=== PATIENT | male | born 1960 | race Hispanic/Latino ===

== ENCOUNTER 2021-01-25 17:47 | Inpatient (IN) | payer MEDICARE ==
[~2021-01-25] VITALS: Ht 167.6 cm; Wt 54.6 kg
[2021-01-25] MEDS ORDERED: ZOSYN 3.375GM+NS 50ML 3.38 GM in 0.9%NACL 50ML 50 ML IV SCH (18:00)
[2021-01-25] MEDS ORDERED: MORPHINE 2 MG SYG IVP ONE (18:00)
[2021-01-25] MEDS ORDERED: ONDANSETRON 4MG INJ IVP ONE (18:00)
[2021-01-25] MEDS ORDERED: TIMO1DRO5 OP (18:09)
[2021-01-25] MEDS ORDERED: FAMO-136 PO (18:09)
[2021-01-25] MEDS ORDERED: DOCU100T PO (18:09)
[2021-01-25] MEDS ORDERED: LEVO150C4 PO (18:09)
[2021-01-25] MEDS ORDERED: ALPR0.5T8 PO (18:09)
[2021-01-25] MEDS ORDERED: GABA-529 PO (18:09)
[2021-01-25] MEDS ORDERED: BRIM5DRO4 OP (18:09)
[2021-01-25] MEDS ORDERED: AMLO-257 PO (18:09)
[2021-01-25] MEDS ORDERED: LATA7.5D OP (18:09)
[2021-01-25] MEDS ORDERED: LIDO1ADH71 TP (18:09)
[2021-01-25] MEDS ORDERED: CARV3.12 PO (18:09)
[2021-01-25] MEDS ORDERED: SENN-183 PO (18:09)
[2021-01-25] MEDS ORDERED: ASPI-1197 PO (18:09)
[2021-01-25] MEDS ORDERED: FOLI1TAB85 PO (18:09)
[2021-01-25] MEDS ORDERED: ATOR20TA65 PO (18:09)
[2021-01-25] MEDS ORDERED: ONDANSETRON 4MG INJ ONE (18:13)
[2021-01-25] MEDS ORDERED: ZOSYN 3.375GM+NS 50ML 50 ML ONE (18:14)
[2021-01-25] MEDS ORDERED: MORPHINE 2 MG SYG ONE (18:14)
[2021-01-25] MEDS ORDERED: 0.9%NACL 50ML 50 ML IV ONE (18:14)
[2021-01-25 18:41] LABS: BASOPHILS % (AUTO) 0.4 % (0.0-5.0); EOSINOPHILS % (AUTO) 1.7 % (0.0-8.0); HEMATOCRIT 38.5 % (42-54); LYMPHOCYTES % (AUTO) 5.1 % (21.0-51.0); MEAN CORPUSCULAR HEMOGLOBIN 28.7 pg (27.0-33.0); MEAN CORPUSCULAR HGB CONC 30.9 g/dL (32.0-36.0); MONOCYTES % (AUTO) 5.6 % (3.0-13.0); NEUTROPHILS % (AUTO) 86.8 % (40.0-77.0); PLATELET COUNT (AUTO) 310 K/uL (130-400); RED BLOOD CELL COUNT(AUTO) 4.14 MIL/uL (4.50-6.20); RED CELL DISTRIBUTION WIDTH 17.2 % (11.0-15.5); WHITE BLOOD COUNT (AUTO) 14.2 K/uL (4.8-10.8)
[2021-01-25 18:51] LABS: CREATININE 5.4 mg/dL (0.5-1.5); POTASSIUM 3.5 mmol/L (3.5-5.1)
[2021-01-25 18:56] LABS: ALBUMIN 2.4 g/dL (3.5-5.0); TOTAL PROTEIN, SERUM 7.5 g/dL (6.0-8.3)
[2021-01-25 19:12] LABS: CRP QUANTITATIVE 193.7 mg/L (0.00-9.0)
[2021-01-25] MEDS ORDERED: GLUCAGON 1MG KIT 1 MG ML IM PRN (20:30)
[2021-01-25] MEDS ORDERED: ACETAMINOPHEN 325 MG TAB PO PRN (20:30)
[2021-01-25] MEDS ORDERED: DEXTROSE 50%-WATER 50 ML DISP.SYRIN IV PRN (20:30)
[2021-01-25] MEDS: INSULIN R PO SS1 SQ SCH (21:00)
[2021-01-25] MEDS ORDERED: VANCOMYCIN PROTOCOL PER PHARMACY IV SCH (21:00)
[2021-01-25] MEDS ORDERED: VANCOMYCIN 1.25GM/NS 250ML IVPB ONE ×2 (21:00)
[2021-01-25] MEDS: ONDANSETRON 4MG INJ IVP PRN (21:10)
[2021-01-25] MEDS: MORPHINE 2 MG SYG IVP PRN (21:10)
[2021-01-25] MEDS: HEPARIN 5,000 UNIT VIAL SQ SCH (21:10)
[2021-01-26] VITALS (17 sets, daily range): BP systolic 114–169; BP diastolic 59–97
[2021-01-26] MEDS: ONDANSETRON 4MG INJ IVP PRN (03:40)
[2021-01-26] MEDS: MORPHINE 2 MG SYG IVP PRN ×3 (03:40→21:35)
[2021-01-26 06:05] LABS: HEMATOCRIT 35.4 % (42-54); MEAN CORPUSCULAR HEMOGLOBIN 29.1 pg (27.0-33.0); MEAN CORPUSCULAR HGB CONC 31.1 g/dL (32.0-36.0); MEAN CORPUSCULAR VOLUME 93.7 fL (79-99); RED BLOOD CELL COUNT(AUTO) 3.78 MIL/uL (4.50-6.20); RED CELL DISTRIBUTION WIDTH 17.2 % (11.0-15.5); WHITE BLOOD COUNT (AUTO) 15.2 K/uL (4.8-10.8)
[2021-01-26] MEDS ORDERED: 0.9%NACL 50ML 50 ML IV ONE (06:17)
[2021-01-26] MEDS: ZOSYN 3.375GM +NS 50ML IV SCH ×2 (06:19→18:00)
[2021-01-26 06:26] LABS: CREATININE 5.9 mg/dL (0.5-1.5); PHOSPHORUS 5.1 mg/dL (2.5-4.9); POTASSIUM 4.1 mmol/L (3.5-5.1)
[2021-01-26] MEDS: INSULIN R PO SS1 SQ SCH ×4 (07:30→21:00)
[2021-01-26] MEDS: HEPARIN 5,000 UNIT VIAL SQ SCH ×2 (08:15→21:34)
[2021-01-26 08:57] LABS: HEMOGLOBIN A1C 7.5 % (4.0-6.0)
[2021-01-26] MEDS ORDERED: 0.9%NACL 1000ML 1,000 ML IV PRN (11:30)
[2021-01-27] VITALS (24 sets, daily range): BP systolic 91–144; BP diastolic 47–95
[2021-01-27] MEDS: MORPHINE 2 MG SYG IVP PRN (05:10)
[2021-01-27] MEDS: ZOSYN 3.375GM +NS 50ML IV SCH ×2 (05:10→18:35)
[2021-01-27] MEDS: INSULIN R PO SS1 SQ SCH ×4 (06:21→21:00)
[2021-01-27] MEDS: HEPARIN 5,000 UNIT VIAL SQ SCH ×2 (09:00→21:10)
[2021-01-27] MEDS ORDERED: VANCOMYCIN 750MG VIAL IVPB SCH (12:00)
[2021-01-27] MEDS ORDERED: ROPIVACAINE 0.5% 5MG/ML 30ML IJ ONE (12:23)
[2021-01-27] MEDS ORDERED: DEXAMETHASONE SOD PHOSPHATE 4 MG/ML 1ML VIAL ONE (12:23)
[2021-01-27 12:33] LABS: HEMATOCRIT 34.2 % (42-54); MEAN CORPUSCULAR HEMOGLOBIN 29.1 pg (27.0-33.0); MEAN CORPUSCULAR HGB CONC 31.3 g/dL (32.0-36.0); MEAN CORPUSCULAR VOLUME 92.9 fL (79-99); RED BLOOD CELL COUNT(AUTO) 3.68 MIL/uL (4.50-6.20); RED CELL DISTRIBUTION WIDTH 17.2 % (11.0-15.5); WHITE BLOOD COUNT (AUTO) 13.7 K/uL (4.8-10.8)
[2021-01-27] MEDS ORDERED: MIDAZOLAM HCL 1 MG/ML 2ML VIAL ONE (12:39)
[2021-01-27] MEDS ORDERED: PROPOFOL 10 MG/ML 20ML VIAL IV ONE ×2 (12:46→13:18)
[2021-01-27 12:56] LABS: CREATININE 5.8 mg/dL (0.5-1.5); POTASSIUM 4.4 mmol/L (3.5-5.1)
[2021-01-27 19:09] LABS: HEPATITIS Bs ANTIGEN SCREEN P Negative (Negative)
[2021-01-28] VITALS (7 sets, daily range): BP systolic 97–130; BP diastolic 55–73
[2021-01-28] MEDS: ZOSYN 3.375GM +NS 50ML IV SCH ×2 (05:57→18:07)
[2021-01-28] MEDS: INSULIN R PO SS1 SQ SCH ×4 (06:11→22:25)
[2021-01-28] MEDS: HEPARIN 5,000 UNIT VIAL SQ SCH ×2 (09:38→20:30)
[2021-01-28] MEDS: HYDROCODONE/ACETAMINOPHEN 5/325 MG TAB PO PRN ×2 (12:51→20:31)
[2021-01-28] MEDS ORDERED: 0.9% NACL 250ML 250 ML IV SCH (16:00)
[2021-01-28] MEDS: MORPHINE 2 MG SYG IVP PRN ×2 (16:00→22:26)
[2021-01-29] VITALS (22 sets, daily range): BP systolic 101–144; BP diastolic 44–78
[2021-01-29] MEDS: INSULIN R PO SS1 SQ SCH ×4 (06:25→20:34)
[2021-01-29] MEDS: ZOSYN 3.375GM +NS 50ML IV SCH ×2 (06:28→18:00)
[2021-01-29] MEDS: HYDROCODONE/ACETAMINOPHEN 5/325 MG TAB PO PRN ×2 (06:41→11:19)
[2021-01-29 08:47] LABS: HEMATOCRIT 30.7 % (42-54); MEAN CORPUSCULAR HEMOGLOBIN 29.3 pg (27.0-33.0); MEAN CORPUSCULAR HGB CONC 31.6 g/dL (32.0-36.0); MEAN CORPUSCULAR VOLUME 92.7 fL (79-99); PLATELET COUNT (AUTO) 337 K/uL (130-400); RED BLOOD CELL COUNT(AUTO) 3.31 MIL/uL (4.50-6.20); RED CELL DISTRIBUTION WIDTH 17.3 % (11.0-15.5); WHITE BLOOD COUNT (AUTO) 9.5 K/uL (4.8-10.8)
[2021-01-29] MEDS: HEPARIN 5,000 UNIT VIAL SQ SCH ×2 (09:00→20:28)
[2021-01-29 10:00] LABS: EOSINOPHILS % (MANUAL) 4 % (1-6); LYMPHOCYTES % (MANUAL) 11 % (22-44); MAN.DIFF COMMENT-IMPRESSION MANUAL DIFFERENTIAL; MONOCYTES % (MANUAL) 2 % (2-9); PLATELET MORPHOLOGY COMMENT ADEQUATE; SEGMENTED NEUTROPHILS % 83 % (40-70)
[2021-01-29] MEDS ORDERED: VANCOMYCIN 750MG VIAL IVPB SCH (16:00)
[2021-01-29] MEDS: MORPHINE 2 MG SYG IVP PRN (17:17)
[2021-01-30 04:15] VITALS: BP 141/74
[2021-01-30 04:16] VITALS: BP 120/72
[2021-01-30] MEDS: ZOSYN 3.375GM +NS 50ML IV SCH (06:02)
[2021-01-30] MEDS: INSULIN R PO SS1 SQ SCH ×3 (07:30→16:30)
[2021-01-30 08:00] VITALS: BP 126/77
[2021-01-30] MEDS: HEPARIN 5,000 UNIT VIAL SQ SCH (09:37)
[2021-01-30 11:42] VITALS: BP 153/85
[2021-01-30 16:00] VITALS: BP 140/80
== END 2021-01-30 18:00 | DRG 474 ==
LOC: EDH 17:47 → EDHIP 19:30 → UNDOADMIN 22:26 → EDHIP 22:26 → 3AH 01-26 14:09 → EDHIP 01-26 14:09
PROVIDERS: ADMIT Internal Medicine Infectious Disease; ATTEND Internal Medicine Infectious Disease
PROC: 5A1D70Z Performance of Urinary Filtration, Intermittent, Less than 6 Hours Per Day (ICD-10-PCS; 2021-01-26)
PROC: 0Y6C0Z3 Detachment at Right Upper Leg, Low, Open Approach (ICD-10-PCS; principal; 2021-01-29)
PROC: 3E0T3BZ Introduction of Anesthetic Agent into Peripheral Nerves and Plexi, Percutaneous Approach (ICD-10-PCS; 2021-01-29)
PROC: 3E0T33Z Introduction of Anti-inflammatory into Peripheral Nerves and Plexi, Percutaneous Approach (ICD-10-PCS; 2021-01-29)
PROC: 5A1D70Z Performance of Urinary Filtration, Intermittent, Less than 6 Hours Per Day (ICD-10-PCS; 2021-01-29)
DX: T87.81 Dehiscence of amputation stump (principal); N18.6 End stage renal disease; E11.52 Type 2 diabetes mellitus with diabetic peripheral angiopathy with gangrene; I12.0 Hypertensive chronic kidney disease with stage 5 chronic kidney disease or end stage renal disease; M86.8X6 Other osteomyelitis, lower leg; T87.43 Infection of amputation stump, right lower extremity; D64.9 Anemia, unspecified; E11.22 Type 2 diabetes mellitus with diabetic chronic kidney disease; B96.1 Klebsiella pneumoniae [K. pneumoniae] as the cause of diseases classified elsewhere; G89.29 Other chronic pain; Z20.822 Contact with and (suspected) exposure to COVID-19; R53.81 Other malaise; E11.69 Type 2 diabetes mellitus with other specified complication; B95.2 Enterococcus as the cause of diseases classified elsewhere; I25.10 Atherosclerotic heart disease of native coronary artery without angina pectoris; Y83.5 Amputation of limb(s) as the cause of abnormal reaction of the patient, or of later complication, without mention of misadventure at the time of the procedure; Y92.89 Other specified places as the place of occurrence of the external cause; Z89.512 Acquired absence of left leg below knee; Z99.2 Dependence on renal dialysis; Z79.4 Long term (current) use of insulin; Z83.3 Family history of diabetes mellitus
CPT/HCPCS: 36415; 71045; 73560; 73562; 80048; 80053; 80202; 82948; 83036; 83605; 83735; 84100; 84484; 85025; 85027; 86140; 86704; 86706; 87040; 87070; 87076; 87077; 87186; 87340; 87635; 88307; 88311; 90935; 93005; G0378; J1100; J1644; J1815; J2250; J2405; J2543; J2704; J2795; J3370; J7050; J7070

== ENCOUNTER 2021-02-18 09:29 | Emergency (ER) | payer MEDICARE ==
[~2021-02-18 09:29] MED LIST: ALPR0.5T8 PO; AMLO-257 PO; ASPI-1197 PO; ATOR20TA65 PO; BRIM5DRO4 OP; CARV3.12 PO; DOCU100T PO; FAMO-136 PO; FOLI1TAB85 PO; GABA-529 PO; LATA7.5D OP; LEVO150C4 PO; LIDO1ADH71 TP; SENN-183 PO; TIMO1DRO5 OP
[2021-02-18] MEDS ORDERED: ACETAMINOPHEN 325 MG TAB PO SCH (10:00)
[2021-02-18 10:14] LABS: EOSINOPHILS % (AUTO) 5.4 % (0.0-8.0); HEMATOCRIT 35.8 % (42-54); LYMPHOCYTES % (AUTO) 17.9 % (21.0-51.0); MEAN CORPUSCULAR HEMOGLOBIN 29.8 pg (27.0-33.0); MEAN CORPUSCULAR HGB CONC 30.4 g/dL (32.0-36.0); MEAN CORPUSCULAR VOLUME 97.8 fL (79-99); MONOCYTES % (AUTO) 11.5 % (3.0-13.0); PLATELET COUNT (AUTO) 157 K/uL (130-400); RED BLOOD CELL COUNT(AUTO) 3.66 MIL/uL (4.50-6.20); RED CELL DISTRIBUTION WIDTH 20.9 % (11.0-15.5); WHITE BLOOD COUNT (AUTO) 4.8 K/uL (4.8-10.8)
[2021-02-18 10:23] LABS: INR 1.27 (0.85-1.15); PROTHROMBIN TIME 13.5 SEC (9.6-11.6)
[2021-02-18 10:24] LABS: PARTIAL THROMBOPLASTIN TIME 32.2 SEC (26.3-35.5)
[2021-02-18 10:25] LABS: CREATININE 5.7 mg/dL (0.5-1.5)
[2021-02-18 10:29] LABS: ALBUMIN 2.7 g/dL (3.5-5.0); BILIRUBIN,TOTAL 0.7 mg/dL (0.2-1.0); TOTAL PROTEIN, SERUM 7.5 g/dL (6.0-8.3)
[2021-02-18] MEDS ORDERED: ALBUMIN (HUMAN) 25% 200 ML IV ONE (12:22)
[2021-02-18 16:18] VITALS: BP 122/62
[2021-02-18 17:24] LABS: APPEARANCE BODY FLUID CLEAR (CLEAR); COLOR,BODY FLUID YELLOW (LT YELLOW); SPECIMENTYPE,BODY FLUID ASCITES; TOTAL VOLUME,BODY FLUID 7500 mL
[2021-02-18 17:25] LABS: BODY FLUID RBC 110 /cu. mm.; BODY FLUID WBC 118 /cu. mm.
[2021-02-18 18:03] LABS: BF LYMPHOCYTE 51 %; BF MONOCYTE 1 %
== END 2021-02-18 16:39 | disposition home or self-care (01) ==
LOC: EDH 09:29
DX: R18.8 Other ascites (principal); E11.9 Type 2 diabetes mellitus without complications; I10 Essential (primary) hypertension; Z89.511 Acquired absence of right leg below knee; Z89.512 Acquired absence of left leg below knee; Z79.82 Long term (current) use of aspirin; Z79.899 Other long term (current) drug therapy
CPT/HCPCS: 36415; 49083; 80053; 84484 ×2; 85025; 85610; 85730; 87071; 87205; 89051; 96365; 99285; C1729; P9046

== ENCOUNTER 2021-07-29 10:16 | Observation (INO) | payer MEDICARE, OTHER ==
[~2021-07-29] VITALS: Ht 162.6 cm; Wt 62.2 kg
[2021-07-29] MEDS ORDERED: LACTULOSE 20 GM/30 ML UDCUP PR SCH (11:00)
[2021-07-29] MEDS ORDERED: PEG 3350/NA SULF,BICARB,CL/KCL 4000 ML SOLN PO SCH (11:00)
[2021-07-29] MEDS ORDERED: 0.9%NACL 1000ML 1,000 ML IV SCH (11:00)
[2021-07-29 11:16] LABS: BASOPHILS % (AUTO) 0.3 % (0.0-5.0); EOSINOPHILS % (AUTO) 2.5 % (0.0-8.0); HEMATOCRIT 39.5 % (42-54); LYMPHOCYTES % (AUTO) 13.4 % (21.0-51.0); MEAN CORPUSCULAR HEMOGLOBIN 32.5 pg (27.0-33.0); MEAN CORPUSCULAR HGB CONC 32.9 g/dL (32.0-36.0); MEAN CORPUSCULAR VOLUME 98.8 fL (79-99); NEUTROPHILS % (AUTO) 73.5 % (40.0-77.0); PLATELET COUNT (AUTO) 136 K/uL (130-400); RED CELL DISTRIBUTION WIDTH 15.9 % (11.0-15.5); WHITE BLOOD COUNT (AUTO) 6.1 K/uL (4.8-10.8)
[2021-07-29 11:23] LABS: CREATININE 6.8 mg/dL (0.5-1.5); POTASSIUM 5.5 mmol/L (3.5-5.1)
[2021-07-29 11:27] LABS: ALBUMIN 3.5 g/dL (3.5-5.0); BILIRUBIN,TOTAL 0.7 mg/dL (0.2-1.0); TOTAL PROTEIN, SERUM 7.7 g/dL (6.0-8.3)
[2021-07-29] MEDS ORDERED: CARV3.12 PO (11:34)
[2021-07-29] MEDS ORDERED: AMLO-258 PO (11:34)
[2021-07-29] MEDS ORDERED: CALC667C10 PO (11:34)
[2021-07-29] MEDS ORDERED: LEVO50TA11 PO (11:34)
[2021-07-29] MEDS ORDERED: FLUO20CA30 PO (11:34)
[2021-07-29 11:41] LABS: INR 1.15 (0.85-1.15); PROTHROMBIN TIME 12.4 SEC (9.6-11.6)
[2021-07-29] MEDS ORDERED: LACTULOSE 20 GM/30 ML UDCUP PO SCH ×2 (14:00→17:00)
[2021-07-29] MEDS ORDERED: ONDANSETRON 4MG INJ ONE (18:10)
[2021-07-29 18:30] VITALS: BP 123/73
[2021-07-29] MEDS ORDERED: ONDANSETRON 4MG INJ IVP PRN (18:30)
[2021-07-29 19:43] VITALS: BP 114/72
[2021-07-29 23:17] VITALS: BP 117/70
[2021-07-30] VITALS (34 sets, daily range): BP systolic 108–144; BP diastolic 47–80
[2021-07-30 04:46] LABS: BASOPHILS % (AUTO) 0.5 % (0.0-5.0); EOSINOPHILS % (AUTO) 2.8 % (0.0-8.0); HEMATOCRIT 36.4 % (42-54); LYMPHOCYTES % (AUTO) 16.7 % (21.0-51.0); MEAN CORPUSCULAR HEMOGLOBIN 31.8 pg (27.0-33.0); MEAN CORPUSCULAR HGB CONC 32.4 g/dL (32.0-36.0); MEAN CORPUSCULAR VOLUME 98.1 fL (79-99); MONOCYTES % (AUTO) 10.3 % (3.0-13.0); NEUTROPHILS % (AUTO) 69.2 % (40.0-77.0); PLATELET COUNT (AUTO) 136 K/uL (130-400); RED BLOOD CELL COUNT(AUTO) 3.71 MIL/uL (4.50-6.20); RED CELL DISTRIBUTION WIDTH 15.8 % (11.0-15.5); WHITE BLOOD COUNT (AUTO) 5.7 K/uL (4.8-10.8)
[2021-07-30 05:02] LABS: ALBUMIN 3.4 g/dL (3.5-5.0); BILIRUBIN,TOTAL 0.8 mg/dL (0.2-1.0); CREATININE 7.4 mg/dL (0.5-1.5); MAGNESIUM 2.7 mg/dL (1.80-2.40); POTASSIUM 4.6 mmol/L (3.5-5.1); TOTAL PROTEIN, SERUM 7.6 g/dL (6.0-8.3)
[2021-07-30 05:07] LABS: INR 1.18 (0.85-1.15); PROTHROMBIN TIME 12.7 SEC (9.6-11.6)
[2021-07-30] MEDS ORDERED: DEXTROSE 50%-WATER 50 ML DISP.SYRIN IV ONE (10:57)
[2021-07-30] MEDS ORDERED: LIDOCAINE PF 100MG/5ML (2%) SYRINGE 5ML ONE (12:20)
[2021-07-30] MEDS ORDERED: PROPOFOL 10 MG/ML 20ML VIAL IV ONE (12:20)
[2021-07-30 20:39] LABS: HEPATITIS B SURFACE ANTIGEN Non-Reactive (Negative)
== END 2021-07-30 19:30 | disposition home or self-care (01) ==
LOC: EDH 10:16 → EDHIP 10:17 → 4BH 18:30
PROVIDERS: ADMIT Internal Medicine Infectious Disease; ATTEND Internal Medicine Infectious Disease
DX: K63.5 Polyp of colon (principal); Z20.822 Contact with and (suspected) exposure to COVID-19; E87.70 Fluid overload, unspecified; E87.5 Hyperkalemia; I16.0 Hypertensive urgency; I12.0 Hypertensive chronic kidney disease with stage 5 chronic kidney disease or end stage renal disease; N18.6 End stage renal disease; E11.22 Type 2 diabetes mellitus with diabetic chronic kidney disease; E11.51 Type 2 diabetes mellitus with diabetic peripheral angiopathy without gangrene; I73.9 Peripheral vascular disease, unspecified; M86.071 Acute hematogenous osteomyelitis, right ankle and foot; M86.072 Acute hematogenous osteomyelitis, left ankle and foot; R53.81 Other malaise; K64.0 First degree hemorrhoids; D63.1 Anemia in chronic kidney disease; Z99.2 Dependence on renal dialysis; Z89.511 Acquired absence of right leg below knee; Z89.512 Acquired absence of left leg below knee; Z91.19 Patient's noncompliance with other medical treatment and regimen; Z01.818 Encounter for other preprocedural examination; Z79.899 Other long term (current) drug therapy; Z98.890 Other specified postprocedural states; Z86.010 Personal history of colon polyps
CPT/HCPCS: 36415 ×2; 45380; 80053 ×2; 82948 ×4; 83735; 85025 ×2; 85610 ×2; 86704; 86706; 87340; 87635; 96374; A4215; A4222; A4223; A4606; A4620; G0378 ×30; J2001; J2405; J2704; J7070; 90935

== ENCOUNTER → 2021-09-09 | Outpatient (CLI) | payer MEDICARE ==
[~2021-09-09] MED LIST changes: +AMLO-258 PO; +CALC667C10 PO; +FLUO20CA30 PO; +LEVO50TA11 PO; +LIDOCAINE HCL 4% LTA SOL 4 ML VIAL TP ONE
== END | disposition home or self-care (01) ==
LOC: WHH 11:58
PROVIDERS: ATTEND Family Medicine
DX: T87.89 Other complications of amputation stump (principal); I70.248 Atherosclerosis of native arteries of left leg with ulceration of other part of lower leg; L97.822 Non-pressure chronic ulcer of other part of left lower leg with fat layer exposed; I70.201 Unspecified atherosclerosis of native arteries of extremities, right leg; E11.628 Type 2 diabetes mellitus with other skin complications; S81.802A Unspecified open wound, left lower leg, initial encounter; E11.51 Type 2 diabetes mellitus with diabetic peripheral angiopathy without gangrene; E11.22 Type 2 diabetes mellitus with diabetic chronic kidney disease; I12.0 Hypertensive chronic kidney disease with stage 5 chronic kidney disease or end stage renal disease; N18.6 End stage renal disease; E11.69 Type 2 diabetes mellitus with other specified complication; M86.072 Acute hematogenous osteomyelitis, left ankle and foot; M86.071 Acute hematogenous osteomyelitis, right ankle and foot; Z89.511 Acquired absence of right leg below knee; Z79.899 Other long term (current) drug therapy; Z79.82 Long term (current) use of aspirin; X58.XXXA Exposure to other specified factors, initial encounter; Y93.89 Activity, other specified; Y92.89 Other specified places as the place of occurrence of the external cause; Y99.8 Other external cause status; Y83.5 Amputation of limb(s) as the cause of abnormal reaction of the patient, or of later complication, without mention of misadventure at the time of the procedure
CPT/HCPCS: 11042; A4450; A6021; A6197

== ENCOUNTER → 2021-09-23 | Outpatient (CLI) | payer MEDICARE | END | disposition home or self-care (01) | LOC: WHH 10:15 | PROVIDERS: ATTEND Family Medicine | DX: T87.89 Other complications of amputation stump (principal); E11.622 Type 2 diabetes mellitus with other skin ulcer; I70.248 Atherosclerosis of native arteries of left leg with ulceration of other part of lower leg; L97.822 Non-pressure chronic ulcer of other part of left lower leg with fat layer exposed; I70.201 Unspecified atherosclerosis of native arteries of extremities, right leg; S81.802D Unspecified open wound, left lower leg, subsequent encounter; S61.402A Unspecified open wound of left hand, initial encounter; E11.628 Type 2 diabetes mellitus with other skin complications; E11.51 Type 2 diabetes mellitus with diabetic peripheral angiopathy without gangrene; E11.22 Type 2 diabetes mellitus with diabetic chronic kidney disease; I12.0 Hypertensive chronic kidney disease with stage 5 chronic kidney disease or end stage renal disease; N18.6 End stage renal disease; E11.69 Type 2 diabetes mellitus with other specified complication; M86.072 Acute hematogenous osteomyelitis, left ankle and foot; M86.071 Acute hematogenous osteomyelitis, right ankle and foot; Z89.511 Acquired absence of right leg below knee; Z79.899 Other long term (current) drug therapy; Z79.82 Long term (current) use of aspirin; X58.XXXD Exposure to other specified factors, subsequent encounter; X58.XXXA Exposure to other specified factors, initial encounter; Y93.89 Activity, other specified; Y92.89 Other specified places as the place of occurrence of the external cause; Y99.8 Other external cause status; Y83.5 Amputation of limb(s) as the cause of abnormal reaction of the patient, or of later complication, without mention of misadventure at the time of the procedure | CPT/HCPCS: 11042; A6021; A6197 ==

== ENCOUNTER → 2021-09-30 | Outpatient (CLI) | payer MEDICARE | END | disposition home or self-care (01) | LOC: WHH 10:13 | PROVIDERS: ATTEND Family Medicine | DX: T87.89 Other complications of amputation stump (principal); E11.622 Type 2 diabetes mellitus with other skin ulcer; I70.248 Atherosclerosis of native arteries of left leg with ulceration of other part of lower leg; L97.822 Non-pressure chronic ulcer of other part of left lower leg with fat layer exposed; I70.201 Unspecified atherosclerosis of native arteries of extremities, right leg; S81.802D Unspecified open wound, left lower leg, subsequent encounter; S61.402D Unspecified open wound of left hand, subsequent encounter; E11.628 Type 2 diabetes mellitus with other skin complications; E11.51 Type 2 diabetes mellitus with diabetic peripheral angiopathy without gangrene; E11.22 Type 2 diabetes mellitus with diabetic chronic kidney disease; I12.0 Hypertensive chronic kidney disease with stage 5 chronic kidney disease or end stage renal disease; N18.6 End stage renal disease; E11.69 Type 2 diabetes mellitus with other specified complication; M86.072 Acute hematogenous osteomyelitis, left ankle and foot; M86.071 Acute hematogenous osteomyelitis, right ankle and foot; Z89.511 Acquired absence of right leg below knee; Z79.899 Other long term (current) drug therapy; Z79.82 Long term (current) use of aspirin; X58.XXXD Exposure to other specified factors, subsequent encounter; Y83.5 Amputation of limb(s) as the cause of abnormal reaction of the patient, or of later complication, without mention of misadventure at the time of the procedure | CPT/HCPCS: 11042; A6021; A6197 ==

== ENCOUNTER → 2021-10-14 | Outpatient (CLI) | payer MEDICARE | END | disposition home or self-care (01) | LOC: WHH 10:18 | PROVIDERS: ATTEND Family Medicine | DX: T87.89 Other complications of amputation stump (principal); E11.622 Type 2 diabetes mellitus with other skin ulcer; I70.248 Atherosclerosis of native arteries of left leg with ulceration of other part of lower leg; L97.822 Non-pressure chronic ulcer of other part of left lower leg with fat layer exposed; I70.201 Unspecified atherosclerosis of native arteries of extremities, right leg; S81.802D Unspecified open wound, left lower leg, subsequent encounter; S61.402D Unspecified open wound of left hand, subsequent encounter; E11.628 Type 2 diabetes mellitus with other skin complications; E11.51 Type 2 diabetes mellitus with diabetic peripheral angiopathy without gangrene; E11.22 Type 2 diabetes mellitus with diabetic chronic kidney disease; I12.0 Hypertensive chronic kidney disease with stage 5 chronic kidney disease or end stage renal disease; N18.6 End stage renal disease; E11.69 Type 2 diabetes mellitus with other specified complication; M86.072 Acute hematogenous osteomyelitis, left ankle and foot; M86.071 Acute hematogenous osteomyelitis, right ankle and foot; Z89.511 Acquired absence of right leg below knee; Z79.899 Other long term (current) drug therapy; Z79.82 Long term (current) use of aspirin; X58.XXXD Exposure to other specified factors, subsequent encounter; Y83.5 Amputation of limb(s) as the cause of abnormal reaction of the patient, or of later complication, without mention of misadventure at the time of the procedure | CPT/HCPCS: A6021; A6197; G0463 ==

== ENCOUNTER → 2021-10-28 | Outpatient (CLI) | payer MEDICARE | END | disposition home or self-care (01) | LOC: WHH 10:28 | PROVIDERS: ATTEND Family Medicine | DX: T87.89 Other complications of amputation stump (principal); E11.622 Type 2 diabetes mellitus with other skin ulcer; I70.248 Atherosclerosis of native arteries of left leg with ulceration of other part of lower leg; L97.822 Non-pressure chronic ulcer of other part of left lower leg with fat layer exposed; I70.201 Unspecified atherosclerosis of native arteries of extremities, right leg; S81.802D Unspecified open wound, left lower leg, subsequent encounter; E11.628 Type 2 diabetes mellitus with other skin complications; E11.51 Type 2 diabetes mellitus with diabetic peripheral angiopathy without gangrene; E11.22 Type 2 diabetes mellitus with diabetic chronic kidney disease; I12.0 Hypertensive chronic kidney disease with stage 5 chronic kidney disease or end stage renal disease; N18.6 End stage renal disease; E11.69 Type 2 diabetes mellitus with other specified complication; M86.072 Acute hematogenous osteomyelitis, left ankle and foot; M86.071 Acute hematogenous osteomyelitis, right ankle and foot; Z89.511 Acquired absence of right leg below knee; Z79.899 Other long term (current) drug therapy; Z79.82 Long term (current) use of aspirin; X58.XXXD Exposure to other specified factors, subsequent encounter; Y83.5 Amputation of limb(s) as the cause of abnormal reaction of the patient, or of later complication, without mention of misadventure at the time of the procedure | CPT/HCPCS: 11042; 82948; A4450; A6021; A6197 ==

== ENCOUNTER → 2021-11-25 | Outpatient (CLI) | payer MEDICARE ==
[~2021-11-25] MED LIST changes: +HONEY 1 APPL/ML TUBE TP ONE
== END | disposition home or self-care (01) ==
LOC: WHH 10:33
PROVIDERS: ATTEND Family Medicine
DX: T87.89 Other complications of amputation stump (principal); E11.622 Type 2 diabetes mellitus with other skin ulcer; I70.248 Atherosclerosis of native arteries of left leg with ulceration of other part of lower leg; L97.822 Non-pressure chronic ulcer of other part of left lower leg with fat layer exposed; I70.201 Unspecified atherosclerosis of native arteries of extremities, right leg; S81.802D Unspecified open wound, left lower leg, subsequent encounter; E11.628 Type 2 diabetes mellitus with other skin complications; E11.51 Type 2 diabetes mellitus with diabetic peripheral angiopathy without gangrene; E11.22 Type 2 diabetes mellitus with diabetic chronic kidney disease; I12.0 Hypertensive chronic kidney disease with stage 5 chronic kidney disease or end stage renal disease; N18.6 End stage renal disease; E11.69 Type 2 diabetes mellitus with other specified complication; M86.072 Acute hematogenous osteomyelitis, left ankle and foot; M86.071 Acute hematogenous osteomyelitis, right ankle and foot; Z89.511 Acquired absence of right leg below knee; Z79.899 Other long term (current) drug therapy; Z79.82 Long term (current) use of aspirin; X58.XXXD Exposure to other specified factors, subsequent encounter; Y83.5 Amputation of limb(s) as the cause of abnormal reaction of the patient, or of later complication, without mention of misadventure at the time of the procedure
CPT/HCPCS: 11042

== ENCOUNTER → 2021-12-03 | Outpatient (CLI) | payer MEDICARE ==
[~2021-12-03] MED LIST changes: +ALBUMIN (HUMAN) 25% 200 ML IV SCH; -HONEY 1 APPL/ML TUBE TP ONE; -LIDOCAINE HCL 4% LTA SOL 4 ML VIAL TP ONE; +LIDOCAINE HCL-MPF 1% 2ML VIAL ONE
[2021-12-03 11:53] LABS: INR 1.19 (0.85-1.15); PROTHROMBIN TIME 12.8 SEC (9.6-11.6)
[2021-12-03 11:54] LABS: PARTIAL THROMBOPLASTIN TIME 31.3 SEC (26.3-35.5)
[2021-12-03 15:09] LABS: APPEARANCE BODY FLUID SLIGHTLY CLOUDY (CLEAR); BODY FLUID WBC 193 /cu. mm.; COLOR,BODY FLUID YELLOW (LT YELLOW); SPECIMENTYPE,BODY FLUID ASCITES; TOTAL VOLUME,BODY FLUID 9000 mL
[2021-12-03 15:10] LABS: BODY FLUID RBC 279 /cu. mm.
[2021-12-03 15:16] LABS: BF LYMPHOCYTE 39 %; BF MONOCYTE 15 %
== END | disposition home or self-care (01) ==
LOC: RAH 10:59
PROVIDERS: ATTEND Internal Medicine
DX: R18.8 Other ascites (principal); E11.622 Type 2 diabetes mellitus with other skin ulcer; E11.51 Type 2 diabetes mellitus with diabetic peripheral angiopathy without gangrene; E11.22 Type 2 diabetes mellitus with diabetic chronic kidney disease; I12.0 Hypertensive chronic kidney disease with stage 5 chronic kidney disease or end stage renal disease; N18.6 End stage renal disease; E11.69 Type 2 diabetes mellitus with other specified complication; Z79.82 Long term (current) use of aspirin; Z79.899 Other long term (current) drug therapy; Z79.01 Long term (current) use of anticoagulants
CPT/HCPCS: 49083; 89051; 85610; 85730; 87071; 87205; 36415; J3490; C1729; 96365

== ENCOUNTER → 2021-12-09 | Outpatient (CLI) | payer MEDICARE ==
[~2021-12-09] MED LIST changes: -ALBUMIN (HUMAN) 25% 200 ML IV SCH; +LIDOCAINE HCL 4% LTA SOL 4 ML VIAL TP ONE; -LIDOCAINE HCL-MPF 1% 2ML VIAL ONE
== END | disposition home or self-care (01) ==
LOC: WHH 10:23
PROVIDERS: ATTEND Family Medicine
DX: T87.89 Other complications of amputation stump (principal); E11.622 Type 2 diabetes mellitus with other skin ulcer; I70.248 Atherosclerosis of native arteries of left leg with ulceration of other part of lower leg; L97.822 Non-pressure chronic ulcer of other part of left lower leg with fat layer exposed; I70.201 Unspecified atherosclerosis of native arteries of extremities, right leg; S81.802D Unspecified open wound, left lower leg, subsequent encounter; E11.628 Type 2 diabetes mellitus with other skin complications; E11.51 Type 2 diabetes mellitus with diabetic peripheral angiopathy without gangrene; E11.22 Type 2 diabetes mellitus with diabetic chronic kidney disease; I12.0 Hypertensive chronic kidney disease with stage 5 chronic kidney disease or end stage renal disease; N18.6 End stage renal disease; E11.69 Type 2 diabetes mellitus with other specified complication; M86.072 Acute hematogenous osteomyelitis, left ankle and foot; M86.071 Acute hematogenous osteomyelitis, right ankle and foot; Z89.511 Acquired absence of right leg below knee; Z79.899 Other long term (current) drug therapy; Z79.82 Long term (current) use of aspirin; X58.XXXD Exposure to other specified factors, subsequent encounter; Y83.5 Amputation of limb(s) as the cause of abnormal reaction of the patient, or of later complication, without mention of misadventure at the time of the procedure
CPT/HCPCS: 11042; 87070 ×2; 87077 ×2; 87186 ×2; A6248

== ENCOUNTER → 2021-12-26 | Outpatient (CLI) | payer MEDICARE | END | disposition home or self-care (01) | LOC: WHH 11:05 | PROVIDERS: ATTEND Family Medicine | DX: T87.89 Other complications of amputation stump (principal); E11.622 Type 2 diabetes mellitus with other skin ulcer; I70.248 Atherosclerosis of native arteries of left leg with ulceration of other part of lower leg; L97.822 Non-pressure chronic ulcer of other part of left lower leg with fat layer exposed; I70.201 Unspecified atherosclerosis of native arteries of extremities, right leg; S81.802D Unspecified open wound, left lower leg, subsequent encounter; E11.628 Type 2 diabetes mellitus with other skin complications; E11.51 Type 2 diabetes mellitus with diabetic peripheral angiopathy without gangrene; E11.22 Type 2 diabetes mellitus with diabetic chronic kidney disease; I12.0 Hypertensive chronic kidney disease with stage 5 chronic kidney disease or end stage renal disease; N18.6 End stage renal disease; E11.69 Type 2 diabetes mellitus with other specified complication; M86.072 Acute hematogenous osteomyelitis, left ankle and foot; M86.071 Acute hematogenous osteomyelitis, right ankle and foot; Z89.511 Acquired absence of right leg below knee; Z79.899 Other long term (current) drug therapy; Z79.82 Long term (current) use of aspirin; X58.XXXD Exposure to other specified factors, subsequent encounter; Y83.5 Amputation of limb(s) as the cause of abnormal reaction of the patient, or of later complication, without mention of misadventure at the time of the procedure | CPT/HCPCS: 11042; A6248 ==

== ENCOUNTER → 2021-12-30 | Outpatient (CLI) | payer MEDICARE ==
[~2021-12-30] MED LIST changes: +LIDOCAINE HCL MPF 1% 5ML VIAL ONE
== END | disposition home or self-care (01) ==
LOC: WHH 11:08
PROVIDERS: ATTEND Family Medicine
DX: T87.89 Other complications of amputation stump (principal); E11.622 Type 2 diabetes mellitus with other skin ulcer; I70.248 Atherosclerosis of native arteries of left leg with ulceration of other part of lower leg; L97.822 Non-pressure chronic ulcer of other part of left lower leg with fat layer exposed; I70.201 Unspecified atherosclerosis of native arteries of extremities, right leg; S81.802D Unspecified open wound, left lower leg, subsequent encounter; E11.628 Type 2 diabetes mellitus with other skin complications; E11.51 Type 2 diabetes mellitus with diabetic peripheral angiopathy without gangrene; E11.22 Type 2 diabetes mellitus with diabetic chronic kidney disease; I12.0 Hypertensive chronic kidney disease with stage 5 chronic kidney disease or end stage renal disease; N18.6 End stage renal disease; E11.69 Type 2 diabetes mellitus with other specified complication; M86.072 Acute hematogenous osteomyelitis, left ankle and foot; M86.071 Acute hematogenous osteomyelitis, right ankle and foot; Z89.511 Acquired absence of right leg below knee; Z79.899 Other long term (current) drug therapy; Z79.82 Long term (current) use of aspirin; X58.XXXD Exposure to other specified factors, subsequent encounter; Y83.5 Amputation of limb(s) as the cause of abnormal reaction of the patient, or of later complication, without mention of misadventure at the time of the procedure
CPT/HCPCS: 11042; A6248